=== PATIENT | female | born 1970 | race Caucasian/White ===

== ENCOUNTER 2016-11-14 14:00 | Emergency (ER) | payer MEDICAID, OTHER ==
[2016-11-14 14:00] VITALS: BMI 21.3
[2016-11-14 14:04] VITALS: PULSE 67; RESP 18; O2SAT 100
[2016-11-14] MEDS ORDERED: Oxycodone/Acetaminophen 5/325 mg Tab PO STA (14:21)
[2016-11-14] MEDS ORDERED: Oxycodone/Acetaminophen 5/325 mg Tab ONE (14:34)
--- NOTE | 2016-11-14 14:45 | RAD ---
PROCEDURE: Right middle finger radiographs. CT HISTORY: pain COMPARISON: None. TECHNIQUE: AP radiograph of the right hand, as well as spot oblique and lateral images of right middle finger were obtained. FINDINGS: RIGHT MIDDLE FINGER: Right middle finger normal, without fracture of focal lesion. Remainder of the right hand (as seen on the AP view) grossly unremarkable. JOINTS: Normal. SOFT TISSUES: Normal. OTHER FINDINGS: None. IMPRESSION: No acute fracture or dislocation.
--- NOTE | 2016-11-14 14:47 | C.PDOC ---
History Of Present Illness 46 year old female presents to the emergency department with complaints of pain to the third finger of the right hand after slipping and falling two days ago. Patient is right hand dominant and denies weakness or numbness. Time Seen by Provider: 11/14/16 14:13 Chief Complaint (Nursing): Upper Extremity Problem/Injury History Per: Patient History/Exam Limitations: no limitations Onset/Duration Of Symptoms: Days (2 days ago ) Current Symptoms Are (Timing): Still Present Recent travel outside of the [place]: No Past Medical History Reviewed: Historical Data, Nursing Documentation, Vital Signs Vital Signs: Last Vital Signs Temp 98.8 F 11/14/16 15:02 Pulse 67 11/14/16 15:02 Resp 18 11/14/16 15:02 BP 134/83 11/14/16 15:02 Pulse Ox 100 11/14/16 15:31 - Medical History PMH: Gastritis, HTN Surgical History: Endoscopy - [facility] Procedures COLONOSCOPY (02/28/14) ESOPHAGOGASTRODUODENOSCOPY [EGD] W/CLOSED BIOPSY (02/28/14) Family History: States: Unknown Family Hx - Social History Hx Tobacco Use: Yes Hx Alcohol Use: No Hx Substance Use: No - Immunization History Hx Tetanus Toxoid Vaccination: Yes Hx Influenza Vaccination: No Hx Pneumococcal Vaccination: No Review Of Systems Constitutional: Negative for: Fever, Chills Cardiovascular: Negative for: Chest Pain Respiratory: Negative for: Shortness of Breath Musculoskeletal: Positive for: Hand Pain (right third finger pain ). Negative for: Arm Pain Physical Exam - Physical Exam Appears: Non-toxic, No Acute Distress Skin: Warm, Dry Head: Atraumatic Eye(s): bilateral: Normal Inspection, EOMI Nose: Normal Oral Mucosa: Moist Neck: Supple Chest: Symmetrical, No Deformity Respiratory: No Accessory Muscle Use Extremity: No Normal ROM (Pt notes she is unable to move the finger passively. Pt will not allow me to range the finger actively. ), Tenderness (diffuse tenderness of the right third finger ), Capillary Refill (good capillary refill , less than two seconds ), Swelling (mild swelling ) Pulses: Left Radial: Normal, Right Radial: Normal Neurological/Psych: Oriented x3, Normal Speech, Normal Cognition, Normal Motor, Normal Sensation ED Course And Treatment O2 Sat by Pulse Oximetry: 100 (room air ) - Other Rad X-Ray of Right Third Finger X-Ray: Viewed By Me, Read By Radiologist Interpretation: FINDINGS: RIGHT MIDDLE FINGER: Right middle finger normal, without fracture of focal lesion. Remainder of the right hand (as seen on the AP view) grossly unremarkable. JOINTS: Normal. SOFT TISSUES: Normal. OTHER FINDINGS: None. IMPRESSION: No acute fracture or dislocation. Progress Note: Finger splint was attempted to be placed on third finger of the right hand but patient refused. Discussed with patient likely a tendon injury and instructed to follow up with hand specialist in 1-2 days. Disposition - Disposition Referrals: Laith Stapleton MD [Staff Provider] - Disposition: HOME/ ROUTINE Disposition Time: 14:45 Condition: STABLE Additional Instructions: Rest and ice the area. Follow up with hand specialist. Return to ER if symptoms persist or worsen. Prescriptions: Naproxen [Naprosyn] 1 tab PO BID PRN #20 tab PRN Reason: Pain Instructions: Tendon Rupture (ED) Forms: [facility] (Y[place]i), Work Excuse - Clinical Impression Clinical Impression: Rupture of tendon of finger - Scribe Statement The provider has reviewed the documentation as recorded by the Scribyashira Guido All medical record entries made by the Johnibyashira were at my direction and personally dictated by me. I have reviewed the chart and agree that the record accurately reflects my personal performance of the history, physical exam, medical decision making, and the department course for this patient. I have also personally directed, reviewed, and agree with the discharge instructions and disposition.
[2016-11-14 15:03] VITALS: BP 134/83; TEMP 98.8
== END 2016-11-14 15:03 | disposition home or self-care (01) ==
LOC: C.ER 14:00
DX: S56.413A Strain of extensor muscle, fascia and tendon of right middle finger at forearm level, initial encounter (principal); W01.0XXA Fall on same level from slipping, tripping and stumbling without subsequent striking against object, initial encounter; I10 Essential (primary) hypertension; Z72.0 Tobacco use